=== PATIENT | female | born 1955 | race Caucasian/White ===

== ENCOUNTER 2017-12-07 18:29 | Inpatient (IN) | payer MEDICARE, BC ==
[~2017-12-07] VITALS: Ht 165.1 cm; Wt 82.0 kg
[2017-12-07] MEDS ORDERED: SODIUM CHLORIDE FLUSH 10ML SYR IVF ONE (19:30)
[2017-12-07] MEDS ORDERED: SODIUM CHLORIDE 0.9% 1,000ML IVBOLUS ONE ×2 (19:30→20:30)
[2017-12-07] MEDS ORDERED: NAPR500T8 PO (19:54)
[2017-12-07] MEDS ORDERED: META800T PO (19:54)
[2017-12-07 20:05] LABS: MEAN CORPUSCULAR HEMOGLOBIN 30.4 pg (27.0-34.8); MEAN CORPUSCULAR HGB CONC 33.9 g/dL (32.4-35.8); MEAN CORPUSCULAR VOLUME 89.6 fL (80-100); MEAN PLATELET VOLUME 7.6 fL (7.4-10.4); PLATELET COUNT 421 x10^3/uL (130-400); RED BLOOD COUNT 5.03 x10^6/uL (3.82-5.3); RED CELL DISTRIBUTION WIDTH 13.8 % (9.6-15.2)
[2017-12-07 20:16] LABS: ALANINE AMINOTRANSFERASE 228 U/L (12-78); ANION GAP 10 mmol/L (5-15); CHLORIDE 102 mmol/L (98-107)
[2017-12-07 20:21] LABS: ALKALINE PHOSPHATASE 170 U/L (45-117); BILIRUBIN,TOTAL 0.7 mg/dL (0.2-1.0); CREATININE 0.76 mg/dL (0.55-1.02); TOTAL PROTEIN 8.5 g/dL (6.4-8.2); TROPONIN I < 0.015 ng/mL (0.000-0.045)
[2017-12-07 20:34] LABS: MD YES
[2017-12-07 20:37] LABS: BAND#(MANUAL) 1.87 x10^3/uL; BANDS%(MANUAL) 9 % (0-7); BASOS#(MANUAL) 0.21 x10^3/uL (0-0.1); BASOS% (MANUAL) 1 % (0-1); LYMPH#(MANUAL) 1.25 x10^3/uL (1-3.4); LYMPHS% (MANUAL) 6 % (22-44); MONOS#(MANUAL) 1.46 x10^3/uL (0.3-2.7); MONOS% (MANUAL) 7 % (2-9); SEGS% (MANUAL) 77 % (42-75)
[2017-12-07 20:39] LABS: ANISOCYTOSIS 1+
[2017-12-07 20:40] LABS: <PLATELET ESTIMATE> INCREASED; <PLT MORPHOLOGY> NORMAL PLT MORPH
[2017-12-07 20:46] LABS: RAPID INFLUENZA A Negative (Negative); RAPID INFLUENZA B Negative (Negative)
[2017-12-07] MEDS ORDERED: CEFTRIAXONE PMX 1GM/50ML 50 ML IV ONE (21:30)
[2017-12-07] MEDS ORDERED: AZITHROMYCIN 500 MG in SODIUM CHLORIDE 0.9% 250 ML IV ONE (21:30)
[2017-12-07] MEDS ORDERED: CEFTRIAXONE PMX 1GM/50ML 50 ML ONE (22:30)
[2017-12-07] MEDS ORDERED: OMNIPAQUE 350 MG/ML, 100ML BOTTLE ONE (23:08)
[2017-12-08] MEDS ORDERED: SODIUM CHLORIDE 0.9% 1,000 ML IV ONE (00:09)
[2017-12-08] MEDS ORDERED: DOCUSATE 100 MG CAPSULE PO PRN (00:30)
[2017-12-08] MEDS ORDERED: ENALAPRILAT 1.25 MG/ML, 2ML IVPush PRN (00:30)
[2017-12-08] MEDS ORDERED: ACETAMINOPHEN 325 MG TABLET PO PRN (00:30)
[2017-12-08] MEDS ORDERED: ENOXAPARIN 30 MG/0.3 ML SQ SCH (00:30)
[2017-12-08] MEDS ORDERED: ONDANSETRON 2MG/ML, 2ML IVPush PRN (00:30)
[2017-12-08] MEDS ORDERED: SIMETHICONE 80 MG CHEW TAB PO PRN (01:00)
[2017-12-08 01:30] VITALS: BP 126/64
[2017-12-08] MEDS: SODIUM CHLORIDE 0.9% 1,000 ML IV SCH ×3 (01:53→21:14)
[2017-12-08 02:00] VITALS: BP 126/64
[2017-12-08 07:10] VITALS: BP 115/69
[2017-12-08] MEDS ORDERED: HEPARIN 5,000 UNITS/ML, 1ML ONE (08:13)
[2017-12-08] MEDS: HEPARIN 5,000 UNITS/ML, 1ML SQ SCH ×2 (08:29→16:06)
[2017-12-08 10:08] LABS: MICROSCOPIC NOT IND
[2017-12-08 10:09] LABS: CULTURE INDICATED? NO
[2017-12-08] MEDS: DOXYCYCLINE 100MG TABLET PO SCH ×2 (12:46→21:08)
[2017-12-08] MEDS: GUAIFENESIN 200 MG TABLET PO SCH ×2 (12:46→21:08)
[2017-12-08 15:35] VITALS: BP 133/73
[2017-12-08] MEDS: LACTOBACILLUS CHEW TABLET PO SCH ×2 (16:05→21:08)
[2017-12-08 19:58] VITALS: BP 119/69
[2017-12-08] MEDS ORDERED: CEFTRIAXONE PMX 1GM/50ML 50 ML IV SCH (21:00)
[2017-12-08] MEDS ORDERED: AZITHROMYCIN 500 MG in SODIUM CHLORIDE 0.9% 250 ML IV SCH (23:00)
[2017-12-09 01:24] VITALS: BP 123/58
[2017-12-09] MEDS: HEPARIN 5,000 UNITS/ML, 1ML SQ SCH ×2 (01:28→09:00)
[2017-12-09 02:29] LABS: CLOSTRIDIUM DIFFICILE ANTIGEN NEGATIVE; CLOSTRIDIUM DIFFICILE TOXIN NEGATIVE (Negative)
[2017-12-09] MEDS: SODIUM CHLORIDE 0.9% 1,000 ML IV SCH (05:00)
[2017-12-09 09:08] VITALS: BP 127/73
[2017-12-09] MEDS: DOXYCYCLINE 100MG TABLET PO SCH (10:20)
[2017-12-09] MEDS: LACTOBACILLUS CHEW TABLET PO SCH (10:21)
[2017-12-09] MEDS: GUAIFENESIN 200 MG TABLET PO SCH (10:22)
[2017-12-09] MEDS ORDERED: DOXY100T PO (10:48)
[2017-12-09] MEDS ORDERED: GUAI200T3 PO (10:48)
[2017-12-09 11:20] LABS: MEAN CORPUSCULAR HEMOGLOBIN 30.4 pg (27.0-34.8); MEAN CORPUSCULAR HGB CONC 33.9 g/dL (32.4-35.8); MEAN CORPUSCULAR VOLUME 89.8 fL (80-100); MEAN PLATELET VOLUME 7.6 fL (7.4-10.4); PLATELET COUNT 351 x10^3/uL (130-400); RED BLOOD COUNT 4.39 x10^6/uL (3.82-5.3); RED CELL DISTRIBUTION WIDTH 13.8 % (9.6-15.2)
[2017-12-09 11:35] LABS: BASOPHILS # (AUTO) 0.03 x10^3/uL (0-0.1); BASOPHILS % (AUTO) 0 % (0-1); EOSINOPHILS # (AUTO) 0.21 x10^3/uL (0-0.4); EOSINOPHILS % (AUTO) 3 % (1-7); LYMPHOCYTES % (AUTO) 31 % (22-44); MD SCAN; MONOCYTES % (AUTO) 6 % (2-9); NEUTROPHILS # (AUTO) 4.83 x10^3/uL (1.8-6.8); NEUTROPHILS % (AUTO) 60 % (42-75)
[2017-12-09 12:09] VITALS: BP 125/72
== END 2017-12-09 12:52 | disposition home or self-care (01) | DRG 872 ==
LOC: ED 21:21 → EDIP 12-08 00:09 → 4WST 12-08 01:17
PROVIDERS: ADMIT Internal Medicine; ATTEND Internal Medicine
DX: A41.9 Sepsis, unspecified organism (principal); K75.9 Inflammatory liver disease, unspecified; G89.29 Other chronic pain; J40 Bronchitis, not specified as acute or chronic; M54.9 Dorsalgia, unspecified; Z90.49 Acquired absence of other specified parts of digestive tract; Z87.891 Personal history of nicotine dependence; K57.90 Diverticulosis of intestine, part unspecified, without perforation or abscess without bleeding
CPT/HCPCS: 36415; 71046; 71275; 80053; 81003; 83605; 84145; 84484; 85025; 86704; 86706; 86708; 86803; 87040; 87324; 87340; 87400; 93005; 93306; 96361; 96365; J0456; J0696; J1644; J1650; Q9967; J7030; J7050